=== PATIENT | female | born 1960 | race Caucasian/White ===

== ENCOUNTER 2020-04-06 12:54 | Outpatient (CLI) | payer OTHER, SELFPAY ==
--- NOTE | ~2020-04-06 | CT_ITS ---
EXAMINATION:CT lung screening DATE: 04/06/2020 13:19 INDICATION: Personal history of tobacco dependence. Current smoker with 30 pack year history. TECHNIQUE: Computed tomography (CT) of the chest was performed without intravenous contrast. Automate d exposure control and iterative reconstruction technique were employed. The dose-length product (DLP ) was 364.07 mGy-cm. COMPARISON: Chest CT 01/28/2018 FINDINGS: There is mild emphysema. There is mosaic attenuation the lungs, likely small airways diseas e. Calcified right lung nodules and calcified right hilar and mediastinal lymph nodes are consistent with old granulomatous disease. There are a few scattered nodules in the lungs measuring up to 5 mm, stable from 01/28/2018. No pleural effusion. The heart size is normal. There are coronary artery calci fications. No pericardial effusion. There is moderate thoracic spondylosis. There is mild chronic hei ght loss of multiple vertebral bodies. There are changes of anterior fusion procedure in cervical spi ne. IMPRESSION: 1. Lung-RADS category 2: Benign appearance or behavior. Continue annual screening with noncontrast lo w-dose chest CT in 12 months. Reviewed, dictated and finalized at location B. T OPERATOR CONTROL ROOM OPERATOR IMPRESSION: 1. Lung-RADS category 2: Benign appearance or behavior. Continue annual screeni ng with noncontrast low-dose chest CT in 12 months.
== END 2020-04-06 12:55 | disposition home or self-care (01) ==
PROVIDERS: Visit Provider Emergency Medicine
DX: Z12.2 Encounter for screening for malignant neoplasm of respiratory organs (principal); Z87.891 Personal history of nicotine dependence
CPT/HCPCS: G0297

== ENCOUNTER 2021-05-22 11:21 | Emergency (ER) | payer OTHER, SELFPAY ==
--- NOTE | ~2021-05-22 | CT_ITS ---
EXAMINATION: CT abdomen pelvis w con EXAM DATE: 05/22/2021 13:24 INDICATION: LLQ pain . TECHNIQUE: Spiral CT of the abdomen and pelvis was performed following intravenous injection of 100 m L Omnipaque 350. Axial, coronal and sagittal images of the abdomen and pelvis were reviewed. The do se-length product (DLP) for this examination was 1505.98 mGy-cm. The exposure was tailored according to patient size (auto mA exposure control), and iterative reconstruction (ASIR) was used as addition al dose reduction technique. There is no prior study for comparison. FINDINGS: There is hepatic steatosis without suspicious focal lesion identified. Spleen, adrenal glan ds, pancreas are unremarkable. There are cholecystectomy clips. Portal and splenic veins are patent . Kidneys enhance symmetrically. There is no hydronephrosis. The uterus is not identified and has likely been surgically resected. The bladder is unremarkable. There is no retroperitoneal or pelvi c lymphadenopathy. There is moderate scattered arteriosclerotic disease. Mild scattered colonic diverticulosis. Possible small amount of acute uncomplicated diverticulitis at the splenic flexure of the colon. The appendix is normal. The stomach and small bowel are unremarka ble. There is expected amount of colonic stool. No free intraperitoneal gas. The heart is normal in size. There are no pericardial or pleural effusions. The lung bases are unremarkable. Moderate to severe lumbar spondylosis. IMPRESSION: 1. Equivocal mild acute uncomplicated colonic splenic flexure diverticulitis. 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
[2021-05-22 11:25] VITALS: BP 188/97; RESP 86; TEMP 36.1; O2SAT 99
[2021-05-22 12:56] LABS: Basophils Absolute Auto 0.1 K/mm3 (0.0-0.1); Basophils Percent Auto 0.6 % (0.2-1.2); Eosinophils Absolute Auto 0.2 K/mm3 (0-0.3); Eosinophils Percent Auto 1.5 % (0-4.4); Hematocrit 42.8 % (37.0-47.0); Hemoglobin 14.9 g/dL (12.0-15.0); Immature Granulocyte Absolute 0.05 K/mm3 (0.00-0.031); Immature Granulocyte Percent A 0.5 % (0-0.5); Lymphocytes Absolute Auto 2.77 K/mm3 (0.9-3.2); Lymphocytes Percent Auto 26.7 % (18.3-44.2); Mean Corpuscular HGB Conc 34.8 g/dl (32-36); Mean Corpuscular Hemoglobin 30.9 pg (26-34); Mean Corpuscular Volume 88.8 fl (80-100); Monocytes Absolute Auto 0.6 K/mm3 (0.1-0.6); Monocytes Percent Auto 5.5 % (2.6-8.5); Neutrophils Absolute Auto 6.8 K/mm3 (1.3-6.7); Neutrophils Percent Auto 65.2 % (45.5-73.1); Platelet Count Result 250 k/mm3 (150-375); Red Blood Count 4.82 M/mm3 (4.2-5.4); Red Cell Distribution Width 13.2 % (11.5-14.5); White Blood Count 10.4 K/mm3 (4.5-10.0)
[2021-05-22 12:58] LABS: Add Urine Microscopic? NO; Appearance Urine Clear (Clear); Bilirubin Urine Negative (Negative); Blood Urine Negative (Negative); Color Urine Yellow (Yellow); Glucose Urine UA Negative (Negative); Ketones Urine Negative (Negative); Leukocyte Esterase Ur Negative LEU/UL (Negative); Nitrate Urine Negative (Negative); Protein Urine Negative (Negative); Specific Grav Ur 1.008 (1.001-1.035); Urobilinogen Urine Negative mg/dL (<2.0)
[2021-05-22 13:05] LABS: Alanine Aminotransferase 21 U/L (4-35); Albumin Level 4.6 g/dL (3.5-5.1); Alkaline Phosphatase 95 U/L (38-126); Anion Gap 10 mmol/L (8-16); Aspartate Amino Transferase 28 U/L (14-36); Bilirubin,Total 0.5 mg/dL (0.2-1.3); Blood Urea Nitrogen 5 mg/dL (7-17); Calcium 9.5 mg/dL (8.4-10.2); Carbon Dioxide 29 mmol/L (22-30); Chloride 98 mmol/L (98-107); Estimated CRCL calculation 116 ml/min; Estimated Glomerular Filt Rate > 60; Glucose 209 mg/dL (65-110); Lipase 342 U/L (23-300); Sodium 137 mmol/L (137-145)
--- NOTE | 2021-05-22 13:38 | ED.ABDPAIN ---
HPI - Abdominal Pain General Chief Complaint: Abdominal Pain Stated Complaint: left sided abdominal pain Time Seen by Provider: 05/22/21 12:55 Source: patient and RN notes reviewed Limitations: no limitations History of Present Illness HPI narrative: 61-year-old female with history of hysterectomy and cholecystectomy presented to the emergency department for evaluation of left lower quadrant pain. Patient states she began developing some left lower quadrant pain on Friday. Patient states the pain did improve over the course of the weekend. Patient states pain did return on Friday and has continued to worsen throughout the day today. Patient did present to her primary care physician for evaluation and she was referred to the emergency department for further work-up. Patient has no prior history of pancreatitis. Patient has no history of diverticulitis. Patient does admit that she has not been taking her medications as directed because I do not like taking medications . Related Data Allergies Allergy/AdvReac Type Severity Reaction Status Date / Time Penicillins Allergy Intermediate Hives Verified 05/22/21 11:45 Review of Systems Review of Systems: CONSTITUTIONAL: Denies fever, chills, or sweats. EYES: Denies visual changes, redness, or discharge. ENT: Denies rhinorrhea, congestion, sore throat, or otalgia. CARDIOVASCULAR: Denies chest pain, palpitations, or edema. RESPIRATORY: Denies cough or dyspnea. GASTROINTESTINAL: Left lower quadrant abdominal pain, some diarrhea yesterday, denies blood in her stool GENITOURINARY: Denies dysuria or hematuria. SKIN: Denies rash or itching. MUSCULOSKELETAL: Denies back pain, joint pain, or myalgia. NEUROLOGIC: Denies headache, numbness, or weakness. PSYCHIATRIC: Denies anxiety or depression. Exam Narrative: APPEARANCE: Well appearing, no pain, no distress, well-nourished. HEAD: normocephalic, atraumatic. EYES: PERRLA/EOMI, conjunctivae clear. NOSE: Normal no drainage NECK: Supple. No adenopathy, no masses. RESPIRATORY: Airway patent, respirations nonlabored. Clear to auscultation bilaterally, no rales, rhonchi, wheezing. CARDIOVASCULAR: Regular rate and rhythm without murmurs rubs or gallops. ABDOMINAL: Soft, normal bowel sounds, some left-sided tenderness to palpation on exam MUSCULOSKELETAL: Moves all extremities. Strength/ROM intact NEURO: Alert. Cranial nerves II through XII intact. SKIN: Warm, dry. Normal Color PSYCHIATRIC: Normal affect/mood. Course Course Emergency Course: Patient declined any medications for pain control at this time. Patient was updated on the plan for labs and imaging. Reevaluation(s) Reevaluation #1: CT scan did show evidence of diverticulitis. Patient was started on Cipro and Flagyl p.o. in the emergency department. Patient will be discharged on Cipro and Flagyl. Patient does have an underlying penicillin allergy so Augmentin was not chosen. Patient was encouraged to have close follow-up with her primary care physician. Patient was encouraged to restart taking her medications as directed. Patient was also provided additional permission to have follow-up for GI. All questions and concerns were addressed. Patient was in no distress at time of discharge from emergency room. Vital Signs Vital signs: Vital Signs Temperature 96.9 F L 05/22/21 11:25 Respiratory Rate 86 H 05/22/21 11:25 Blood Pressure 188/97 H 05/22/21 11:25 Pulse Oximetry 99 05/22/21 11:25 Temperature 96.9 F L 05/22/21 11:25 Pulse Rate 81 05/22/21 14:25 Respiratory Rate 18 05/22/21 14:25 Blood Pressure 152/88 H 05/22/21 14:25 Pulse Oximetry 97 05/22/21 14:25 MDM - Abdominal Pain Lab Data Attestation: I reviewed the patient's lab results. Result diagrams: 05/22/21 12:47 05/22/21 12:47 Labs: Lab Results 05/22/21 05/22/21 05/22/21 Range/Units 12:47 12:47 12:47 WBC 10.4 H (4.5-10.0) K/mm3 RBC 4.82 (4.2-5.4) M/
[2021-05-22] MEDS: metroNIDAZOLE 250 MG TABLET 500 MG PO (14:15)
[2021-05-22] MEDS: CIPROFLOXACIN 500 MG TAB PO (14:15)
[2021-05-22 14:25] VITALS: BP 152/88; PULSE 81; RESP 18; O2SAT 97
== END 2021-05-22 14:32 | disposition home or self-care (01) ==
PROVIDERS: Emergency Medicine; Emergency Provider Emergency Medicine
DX: K57.32 Diverticulitis of large intestine without perforation or abscess without bleeding (principal)
CPT/HCPCS: 36415; 74177; 80053; 81003; 81025; 83690; 85025; 99284; A9270; Q9967

== ENCOUNTER 2021-07-20 10:21 | Emergency (ER) | payer OTHER, SELFPAY ==
--- NOTE | ~2021-07-20 | CT_ITS ---
EXAMINATION: CT abdomen pelvis w con DATE: 07/20/2021 11:28 INDICATION: Left abdominal pain, nausea. Fever. History of diverticulitis. TECHNIQUE: Computed tomography (CT) of the abdomen and pelvis was performed with 100 CC Omnipaque 350 intravenous contrast. Automated exposure control and iterative reconstruction technique were employe d. Exam dose: 1442.27 mGy-cm total exam DLP. COMPARISON: 05/22/2021 CT abdomen pelvis FINDINGS: Minimal atelectasis in the lung bases. Normal heart size. No pericardial or pleural effusio n. Status post cholecystectomy. No hepatic, splenic, pancreatic, adrenal or renal space-occupying mass l esion, with the exception of several millimeter lower pole right renal cyst, 1.5 cm upper pole left r enal cyst. Spleen is upper limits of normal size. No bile duct or pancreatic duct dilatation. No urinary tract calculus or hydroureteronephrosis. Status post hysterectomy. The urinary bladder is unremarkable. No bowel obstruction or intraperitoneal free air. Normal appendix. Moderately severe degenerative disc disease L3-4 and severe degenerative disc disease at L4-5 and L5- S1. Degenerative changes throughout the remainder of the lumbar and lower thoracic spine. IMPRESSION: Borderline splenic size Small renal cysts Status post cholecystectomy Normal appendix Reviewed, dictated and finalized at Location A. Reviewed, dictated and finalized at location A.
[2021-07-20 10:31] VITALS: BP 101/86; PULSE 96; RESP 18; TEMP 37.1; O2SAT 96
[2021-07-20 10:51] LABS: Basophils Absolute Auto 0.1 K/mm3 (0.0-0.1); Basophils Percent Auto 0.5 % (0.2-1.2); Eosinophils Absolute Auto 0.9 K/mm3 (0-0.3); Eosinophils Percent Auto 8.2 % (0-4.4); Hematocrit 43.2 % (37.0-47.0); Hemoglobin 14.9 g/dL (12.0-15.0); Immature Granulocyte Absolute 0.05 K/mm3 (0.00-0.031); Immature Granulocyte Percent A 0.5 % (0-0.5); Lymphocytes Absolute Auto 2.32 K/mm3 (0.9-3.2); Lymphocytes Percent Auto 21.1 % (18.3-44.2); Mean Corpuscular HGB Conc 34.5 g/dl (32-36); Mean Corpuscular Hemoglobin 30.9 pg (26-34); Mean Corpuscular Volume 89.6 fl (80-100); Mean Platelet Volume 9.4 fl (7.4-10.4); Monocytes Absolute Auto 0.8 K/mm3 (0.1-0.6); Monocytes Percent Auto 6.9 % (2.6-8.5); Neutrophils Absolute Auto 6.9 K/mm3 (1.3-6.7); Neutrophils Percent Auto 62.8 % (45.5-73.1); Platelet Count Result 292 k/mm3 (150-375); Red Blood Count 4.82 M/mm3 (4.2-5.4); Red Cell Distribution Width 13.5 % (11.5-14.5)
[2021-07-20 10:53] LABS: Add Urine Microscopic? NO; Appearance Urine Clear (Clear); Bilirubin Urine Negative (Negative); Blood Urine Negative (Negative); Color Urine Yellow (Yellow); Glucose Urine UA Negative (Negative); Ketones Urine Negative (Negative); Leukocyte Esterase Ur Negative LEU/UL (Negative); Nitrate Urine Negative (Negative); Protein Urine Negative (Negative); Urobilinogen Urine Negative mg/dL (<2.0)
--- NOTE | 2021-07-20 10:53 | ED.ABDPAIN ---
HPI - Abdominal Pain General Chief Complaint: Abdominal Pain Stated Complaint: left abd pain Time Seen by Provider: 07/20/21 10:29 Source: patient Mode of arrival: ambulatory Limitations: no limitations History of Present Illness HPI narrative: 61-year-old female presents today with complaints of fever since Friday and left-sided abdominal pain. Patient states on Friday she was diagnosed with a UTI, put on antibiotics, does not feel any better. Patient also with a history of diverticulitis in April. Last bowel movement this morning was normal for her. Denies diarrhea but does endorse some nausea this morning. Patient is diabetic has been drinking cranberry juice for her UTI symptoms. Patient states she called her physician this morning to get her antibiotics changed and was sent here. Related Data Allergies Allergy/AdvReac Type Severity Reaction Status Date / Time Penicillins Allergy Intermediate Hives Verified 05/22/21 11:45 Review of Systems Review of Systems: CONSTITUTIONAL: Denies fever, chills, or sweats. EYES: Denies visual changes, redness, or discharge. ENT: Denies rhinorrhea, congestion, sore throat, or otalgia. CARDIOVASCULAR: Denies chest pain, palpitations, or edema. RESPIRATORY: Denies cough or dyspnea. GASTROINTESTINAL: Left sided abdominal pain and intermittent nausea. Denies vomiting, or diarrhea. GENITOURINARY: Denies dysuria or hematuria. SKIN: Denies rash or itching. MUSCULOSKELETAL: Denies back pain, joint pain, or myalgia. NEUROLOGIC: Denies headache, numbness, dizziness, or weakness. PSYCHIATRIC: Denies anxiety or depression. Exam Narrative: GENERAL: Well-appearing, well-nourished, and in no acute distress. HEAD: Normocephalic, atraumatic. EYES: PERRLA and EOMI. ENT: Nares clear, no rhinorrhea or epistaxis. Mucous membranes moist. Oropharynx without tonsillar hypertrophy exudate or other lesions. Bilateral TMs pearly henriquez nonbulging NECK: Supple. No adenopathy or masses. No carotid bruits or JVD CHEST: Clear to auscultation. No respiratory distress. No wheezes rales or rhonchi HEART: Regular rate and rhythm. No murmur heard. Normal peripheral pulses. ABDOMEN: Generalized abdominal tenderness. Soft nondistended, normal active bowel sounds. EXTREMITIES: Normal range of motion. No edema. SKIN: Warm, dry, no rash. NEURO: No focal deficits. Alert and oriented x3. PSYCH: Normal mood and affect. Course Course Emergency Course: Labs and CT scan reviewed with patient. Patient aware to continue p.o. antibiotics previously prescribed. Patient aware urine today shows no signs of infection. CT shows no signs of pyelonephritis or diverticulitis. Patient to treat fever with Tylenol or ibuprofen and return with any new or emergent symptoms. Vital Signs Vital signs: Vital Signs Temperature 37.1 C 07/20/21 10:31 Pulse Rate 96 07/20/21 10:31 Respiratory Rate 18 07/20/21 10:31 Blood Pressure 101/86 07/20/21 10:31 Pulse Oximetry 96 07/20/21 10:31 Temperature 37.1 C 07/20/21 10:31 Pulse Rate 78 07/20/21 11:10 Respiratory Rate 18 07/20/21 11:10 Blood Pressure 124/74 07/20/21 11:10 Pulse Oximetry 94 07/20/21 11:10 MDM - Abdominal Pain MDM Narrative Medical decision making narrative: 61-year-old female HPI as documented. Currently afebrile. States she has had fever off and on since Friday. Treatment currently for UTI. CT of the abdomen negative for diverticulitis and no pyelonephritis seen. Patient to go home continue antibiotic regimen that was previously prescribed and medicate with Tylenol/ibuprofen for pain or fever. Patient to follow-up with primary or return for any new or worsening symptoms. Differential Diagnosis Differential diagnosis: Likely abdominal pain, diverticulitis and other (UTI, pyelonephritis) Medical Records Attestation: I reviewed the patient's medical records. Lab Data Attestation: I reviewed the patient's lab results. Result diagrams: 07/20
[2021-07-20 10:55] LABS: Specific Grav Ur 1.003 (1.001-1.035)
[2021-07-20 11:03] LABS: Alanine Aminotransferase 19 U/L (4-35); Albumin Level 4.5 g/dL (3.5-5.1); Alkaline Phosphatase 91 U/L (38-126); Anion Gap 8 mmol/L (8-16); Aspartate Amino Transferase 31 U/L (14-36); Bilirubin,Total 0.5 mg/dL (0.2-1.3); Blood Urea Nitrogen 5 mg/dL (7-17); Calcium 9.2 mg/dL (8.4-10.2); Carbon Dioxide 27 mmol/L (22-30); Chloride 103 mmol/L (98-107); Estimated CRCL calculation 128 ml/min; Estimated Glomerular Filt Rate > 60; Glucose 116 mg/dL (65-110); Lipase 442 U/L (23-300); Potassium 3.7 mmol/L (3.4-5.0); Sodium 138 mmol/L (137-145)
[2021-07-20 11:10] VITALS: BP 124/74; PULSE 78; RESP 18; O2SAT 94
--- NOTE | 2021-07-20 11:30 | PC.NURSE ---
BSSR to Letha Galicia RN
[2021-07-20] MEDS: SODIUM CHLORIDE 0.9% IV 1,000 ML 999 ML IV CONT (12:13)
== END 2021-07-20 13:15 | disposition home or self-care (01) ==
PROVIDERS: Emergency Medicine; Emergency Provider Nurse Practitioner Family; PCP Emergency Medicine
DX: B34.9 Viral infection, unspecified (principal); R10.84 Generalized abdominal pain; N39.0 Urinary tract infection, site not specified; E11.9 Type 2 diabetes mellitus without complications; N28.1 Cyst of kidney, acquired
CPT/HCPCS: 36415; 74177; 80053; 81003; 83690; 85025; 96360; 99284; J7030; Q9967

== ENCOUNTER → 2021-07-23 10:27 | Outpatient (CLI) | payer OTHER, SELFPAY ==
--- NOTE | ~2021-07-23 | XR_ITS ---
EXAMINATION: XR chest 2V EXAM DATE: 07/23/2021 10:49 INDICATION: Chest pain short of breath. TECHNIQUE: Frontal and lateral projections of the chest obtained and reviewed. There is no prior ronak dy for comparison. FINDINGS: There is cervical fusion hardware. The lungs are clear. There are no pleural effusions. T he cardiomediastinal silhouette is within normal limits. There is no pneumothorax suspected. The roman anita and soft tissues are unremarkable. There are cholecystectomy clips. IMPRESSION: No acute cardiopulmonary findings. Reviewed, dictated and finalized at location B.
== END ==
PROVIDERS: PCP Emergency Medicine; Visit Provider Emergency Medicine
DX: R07.9 Chest pain, unspecified (principal); R06.02 Shortness of breath
CPT/HCPCS: 71046

== ENCOUNTER → 2021-07-24 01:46 | Outpatient (CLI) | payer OTHER, SELFPAY ==
[2021-07-24 11:29] LABS: SARS-CoV-2 RNA PCR Negative
== END ==
PROVIDERS: PCP Emergency Medicine; Visit Provider Emergency Medicine
DX: R68.89 Other general symptoms and signs (principal); Z20.822 Contact with and (suspected) exposure to COVID-19
CPT/HCPCS: C9803; U0003; U0005

== ENCOUNTER 2021-12-01 10:50 | Outpatient (CLI) | payer OTHER, SELFPAY ==
--- NOTE | ~2021-12-01 | CT_ITS ---
EXAMINATION: CT lung screening DATE: 12/01/2021 11:56 INDICATION: History of tobacco dependence. TECHNIQUE: Computed tomography (CT) of the chest was performed without intravenous contrast. The dose -length product was 347.43 mGy-cm. Automated exposure control and iterative reconstruction technique were employed. COMPARISON: CT dated 04/06/2020 and 01/28/2018 FINDINGS: There are calcified mediastinal lymph nodes, consistent with chronic granulomatous disease. No significant pleural or pericardial effusion. There is atherosclerosis of the aorta and coronary a rteries. There is emphysema. There are stable scattered bilateral pulmonary nodules measuring 5 mm or less. Moderate thoracic spondylosis. No acute osseous abnormality. No endobronchial lesions. No pneu mothorax. There is dependent atelectasis. There is a small nonenlarged right cardiophrenic angle lymp h node. There are cholecystectomy clips. There are calcified granulomas of the spleen. IMPRESSION: 1. Lung-RADS category 2: Benign appearance or behavior. Continue annual screening with noncontrast lo w-dose chest CT in 12 months. Reviewed, dictated and finalized at location A. IMPRESSION: 1. Lung-RADS category 2: Benign appearance or behavior. Continue annual screeni ng with noncontrast low-dose chest CT in 12 months.
== END 2021-12-01 10:51 | disposition home or self-care (01) ==
PROVIDERS: PCP Emergency Medicine; Visit Provider Emergency Medicine
DX: Z12.2 Encounter for screening for malignant neoplasm of respiratory organs (principal); Z87.891 Personal history of nicotine dependence
CPT/HCPCS: 71271

== ENCOUNTER 2022-02-09 10:27 | Outpatient (CLI) | payer OTHER, SELFPAY ==
--- NOTE | ~2022-02-09 | MM_ITS ---
EXAMINATION: MM screening [facility] BI w lashonda HISTORY: Screening TECHNIQUE: Craniocaudal and mediolateral oblique 3-D tomosynthesis images were obtained and synthetic 2-D images were generated. CAD analysis was submitted and interpreted. COMPARISON: Comparison to multiple prior studies sequentially, with oldest reviewed study dated 01/27. BREAST PARENCHYMAL COMPOSITION: There are scattered areas of fibroglandular density. FINDINGS: There is no evidence of suspicious mass, calcification, or architectural distortion to sugg est malignancy in either breast. There has been no suspicious interval change. IMPRESSION: 1. No mammographic evidence of malignancy. 2. Recommend routine screening mammography in one year. BI-RADS Category 1: Negative Reviewed, dictated and finalized at location A.
== END 2022-02-09 10:28 | disposition home or self-care (01) ==
PROVIDERS: PCP Emergency Medicine; Visit Provider Emergency Medicine
DX: Z12.31 Encounter for screening mammogram for malignant neoplasm of breast (principal)
CPT/HCPCS: 77063; 77067

== ENCOUNTER 2022-04-23 11:50 | Outpatient (CLI) | payer OTHER, SELFPAY ==
[2022-04-23 12:18] LABS: Basophils Absolute Auto 0.1 K/mm3 (0.0-0.1); Basophils Percent Auto 0.5 % (0.2-1.2); Eosinophils Absolute Auto 0.2 K/mm3 (0-0.3); Eosinophils Percent Auto 1.4 % (0-4.4); Hematocrit 36.9 % (37.0-47.0); Hemoglobin 12.7 g/dL (12.0-15.0); Immature Granulocyte Absolute 0.05 K/mm3 (0.00-0.031); Immature Granulocyte Percent A 0.4 % (0-0.5); Lymphocytes Absolute Auto 2.43 K/mm3 (0.9-3.2); Lymphocytes Percent Auto 19.5 % (18.3-44.2); Mean Corpuscular HGB Conc 34.4 g/dl (32-36); Mean Corpuscular Hemoglobin 31.1 pg (26-34); Mean Corpuscular Volume 90.4 fl (80-100); Mean Platelet Volume 10.3 fl (7.4-10.4); Monocytes Absolute Auto 0.7 K/mm3 (0.1-0.6); Monocytes Percent Auto 5.9 % (2.6-8.5); Neutrophils Percent Auto 72.3 % (45.5-73.1); Platelet Count Result 240 k/mm3 (150-375); Red Blood Count 4.08 M/mm3 (4.2-5.4); Red Cell Distribution Width 13.1 % (11.5-14.5); White Blood Count 12.5 K/mm3 (4.5-10.0)
[2022-04-23 13:12] LABS: Alanine Aminotransferase 22 U/L (6-35); Albumin Level 4.3 g/dL (3.5-5.1); Alkaline Phosphatase 73 U/L (38-126); Anion Gap 6 mmol/L (8-16); Aspartate Amino Transferase 29 U/L (14-36); Bilirubin,Total 0.4 mg/dL (0.2-1.3); Blood Urea Nitrogen 9 mg/dL (7-17); Calcium 8.6 mg/dL (8.4-10.2); Carbon Dioxide 27 mmol/L (22-30); Chloride 101 mmol/L (98-107); Estimated Glomerular Filt Rate > 60; Glucose 156 mg/dL (65-110); Potassium 3.8 mmol/L (3.4-5.0); Sodium 134 mmol/L (137-145)
== END 2022-04-23 11:51 | disposition home or self-care (01) ==
LOC: ANHLAB 11:51
PROVIDERS: PCP Emergency Medicine; Visit Provider Internal Medicine Hematology & Oncology
DX: D72.829 Elevated white blood cell count, unspecified (principal)
CPT/HCPCS: 36415; 80053; 85025

== ENCOUNTER 2023-01-16 14:30 | Emergency (ER) | payer OTHER, SELFPAY ==
--- NOTE | ~2023-01-16 | XR_ITS ---
XR ankle RT min 3V DATE: 01/16/2023 14:59 INDICATION: Fall on 01/04/2023. Medial and lateral ankle pain. TECHNIQUE: 4 views including crosstable lateral COMPARISON: None FINDINGS: Prominent plantar and mild posterior calcaneal enthesopathy. There is generalized soft tissue swelling of the ankle. No fracture or dislocation of the ankle or disruption of the ankle mortise is detected. No periosteal reaction or bone destruction. IMPRESSION: Generalized soft tissue swelling; no fracture or dislocation Plantar and posterior calcaneal enthesopathy Reviewed, dictated and finalized at location A.
--- NOTE | ~2023-01-16 | XR_ITS ---
XR tibia fibula RT 2V DATE: 01/16/2023 15:00 INDICATION: Lower leg pain. Fall on 01/04/2023 TECHNIQUE: AP and lateral views COMPARISON: 01/16/2023 right knee and right ankle FINDINGS: Prominent plantar and mild posterior calcaneal enthesopathy. Osteoarthritis at the knee joint. No fracture or dislocation, periosteal reaction or bone destruction of the tibia or fibula is detecte d. Generalized soft tissue swelling at the ankle. IMPRESSION: No fracture or dislocation of the tibia or fibula Reviewed, dictated and finalized at location A.
--- NOTE | ~2023-01-16 | XR_ITS ---
XR knee RT 3V DATE: 01/16/2023 14:59 INDICATION: Anterior knee pain. Abrasion. TECHNIQUE: [place], AP and crosstable lateral views of right knee COMPARISON: None FINDINGS: There is prominent joint space narrowing and periarticular spurring of the patellofemoral j oint. There is mild periarticular spurring at the medial compartment. No fracture or dislocation or joint effusion is detected. IMPRESSION: Osteoarthritis, with greatest involvement at the patellofemoral compartment Reviewed, dictated and finalized at location A. IMPRESSION: Osteoarthritis, with greatest involvement at the patellofemoral com partment
[2023-01-16 14:36] VITALS: BP 134/74; PULSE 88; RESP 18; TEMP 36.8; O2SAT 97
[2023-01-16 17:17] VITALS: BP 125/61; PULSE 76; RESP 18; TEMP 36.7; O2SAT 100
--- NOTE | 2023-01-16 18:28 | ED.LOWEXIN ---
HPI - Extremity Injury (Lower) General Chief Complaint: Extremity Injury, Lower Stated Complaint: right leg injury Time Seen by Provider: 01/16/23 17:27 History of Present Illness HPI Narrative: Patient is a 62-year-old female presenting with foot swelling. Patient states that she fell several weeks ago landing on her right side. She was seen at that time and diagnosed with a right shoulder injury. States she is supposed to follow-up with orthopedic surgery soon for this. States that she has had bilateral foot swelling for the last several days. States that she had a little bit of pain on her right upper foot near the ankle so she was concerned that she may have broken something. States that no one ever obtained x-rays of this leg after her fall. She denies any calf pain or swelling. Denies erythema. No chest pain or shortness of breath. Denies further complaints. Related Data Allergies Allergy/AdvReac Type Severity Reaction Status Date / Time Penicillins Allergy Intermediate Hives Verified 12/04/21 08:44 Review of Systems Review of Systems: All systems reviewed & are unremarkable except as noted in HPI and below Exam Narrative: GENERAL: Well-appearing and in no acute distress. Pleasant and cooperative HEAD: Normocephalic, atraumatic. EYES: PERRLA and EOMI. ENT: Grossly unremarkable NECK: Supple. CHEST: No respiratory distress. HEART: Regular rate and rhythm. Normal peripheral pulses. ABDOMEN: Nondistended EXTREMITIES: bilateral pitting pedal edema that stops just below the ankles, mild lateral malleolar tenderness on right; DP pulses 2+ bilaterally SKIN: Warm, dry NEURO: Alert and oriented x3. PSYCH: Normal mood and affect. Course Vital Signs Vital signs: Vital Signs Temperature 98.2 F 01/16/23 14:36 Pulse Rate 88 01/16/23 14:36 Respiratory Rate 18 01/16/23 14:36 Blood Pressure 134/74 01/16/23 14:36 Pulse Oximetry 97 01/16/23 14:36 Oxygen Delivery Room Air 01/16/23 14:36 Temperature 98.1 F 01/16/23 17:17 Pulse Rate 76 01/16/23 17:17 Respiratory Rate 18 01/16/23 17:17 Blood Pressure 125/61 01/16/23 17:17 Pulse Oximetry 100 01/16/23 17:17 Oxygen Delivery Room Air 01/16/23 14:36 MDM - Extremity Injury (Lower) MDM Narrative Medical decision making narrative: Patient is a 62-year-old female presenting with bilateral foot swelling. Vitals are stable. Exam remarkable for the above. X-rays show no acute osseous abnormalities. She denies unilateral swelling, pain, erythema. No chest pain or shortness of breath. No evidence of DVT. States that both of her feet have been swelling and she cannot put them up as much is normal as she has been having to sleep in her recliner. Discussed the reassuring x-rays with the patient and advised that she keep her appointment with orthopedic surgery and also follow-up with her PCP. Appropriate return precautions given. Voiced understanding and is agreeable with plan. Discharged in stable condition. Differential Diagnosis Differential diagnosis: Likely ankle sprain and strain, acute internal derangement of knee, fracture of toe and ankle fracture Medical Records Attestation: I reviewed the patient's medical records. Imaging Data Radiologist's impression: ITS Impressions Knee X-Ray 01/16/23 15:14 IMPRESSION: Osteoarthritis, with greatest involvement at the patellofemoral compartment Ankle X-Ray 01/16/23 15:16 IMPRESSION: Generalized soft tissue swelling; no fracture or dislocation Plantar and posterior calcaneal enthesopathy Tibia/Fibula X-Ray 01/16/23 15:17 IMPRESSION: No fracture or dislocation of the tibia or fibula Critical Care Time Critical Care Time Critical Care Time: No Discharge Plan Discharge Clinical Impression: Bilateral swelling of feet Patient Disposition: Home, Self-Care Condition: Stable Instructions: Leg Edema (ED) Additional Instructions: X-rays to
== END 2023-01-16 18:45 | disposition home or self-care (01) ==
PROVIDERS: Emergency Provider Emergency Medicine; PCP Emergency Medicine
DX: R22.43 Localized swelling, mass and lump, lower limb, bilateral (principal); M17.11 Unilateral primary osteoarthritis, right knee; M77.51 Other enthesopathy of right foot and ankle; M77.31 Calcaneal spur, right foot
CPT/HCPCS: 73562; 73590; 73610; 99284

== ENCOUNTER → 2024-07-29 10:28 | Outpatient (CLI) | payer OTHER, SELFPAY ==
--- NOTE | ~2024-07-29 | XR_ITS ---
AP view of the pelvis and AP and lateral views of the right hip Clinical history: Pain Findings: No acute fracture or dislocation is seen. Osseous alignment is anatomic. There is mild dege nerative change of the right hip joint. There is degenerative spondylosis of the visualized lower lum bar spine. Soft tissues are unremarkable. Impression: Mild degenerative change of the right hip joint. Reviewed, dictated and finalized at location M. Impression: Mild degenerative change of the right hip joint.
== END ==
LOC: EXPCRAD 10:31
PROVIDERS: PCP Emergency Medicine; Visit Provider Emergency Medicine
DX: M16.11 Unilateral primary osteoarthritis, right hip (principal)
CPT/HCPCS: 73502

== ENCOUNTER 2024-12-31 13:43 | Outpatient (CLI) | payer OTHER, SELFPAY ==
--- NOTE | 2024-12-31 14:06 | ECHO_ITS ---
Patient Info Name: Gen River Age: 64 years : 1960 Gender: Female Ht: 67 in Wt: 280 lbs BSA: 2.52 m2 HR: 80 bpm BP: 163 / 93 mmHg Technical Quality: Fair Exam Date: 12/31/2024 2:19 PM Patient Status: O Admit Date: 12/31/2024 Exam Type: CA echo doppler color flow Complete two-dimensional, color flow and Doppler transthoracic echocardiogram is performed. Buildings And Grounds Supervisor: Soraida Morel Attending Provider: Max Liriano DO Summary 1. Complete two-dimensional, color flow and Doppler transthoracic echocardiogram is performed. 2. Left ventricular chamber dimension is normal. 3. Left ventricular systolic function is normal, estimated at 65-70. 4. The left ventricular diastolic function is grade I diastolic dysfunction. 5. E/e' 13 is mildly elevated. 6. The mitral valve has a mildly calcified annulus. 7. No pulmonary hypertension, estimated pulmonary arterial systolic pressure is 21 mmHg. Left Ventricle E/e' 13 is mildly elevated. Left ventricular chamber dimension is normal. Left ventricular systolic function is normal, estimated at 65-70. The left ventricular diastolic function is grade I diastolic dysfunction. Right Ventricle Right ventricular chamber dimension is normal. Right ventricular systolic function is normal and with normal TAPSE 1.8 cm. Left Atria Left atrial chamber dimension is normal. Right Atria Right atrial chamber dimension is normal. Aortic Valve The aortic valve is not well visualized. Cannot determine number of aortic valve leaflets. There is no aortic valve stenosis. There is no aortic valve regurgitation. Pulmonic Valve There is no pulmonic regurgitation. Mitral Valve The mitral valve has a mildly calcified annulus. There is no mitral valve stenosis. There is no mitral valve regurgitation. Tricuspid Valve There is no tricuspid valve regurgitation. No pulmonary hypertension, estimated pulmonary arterial systolic pressure is 21 mmHg. Pericardium/Pleural There is no pericardial effusion. Inferior Vena Cava Normal inferior vena cava with >50% collapse upon inspiration consistent with normal right atrial pressure, 5 mmHg. Aorta The aortic root size at the sinus of Valsalva is normal. Left Ventricular Outflow Tract Name Value Normal LVOT 2D LVOT Diameter 2.0 cm LVOT Doppler LVOT Peak Velocity 115 cm/s LVOT Peak Gradient 5 mmHg LVOT Mean Gradient 3 mmHg LVOT VTI 25 cm LVOT VTI/AV VTI Ratio 0.7 LVOT Stroke Volume 75 ml LVOT CO 15.1 l/min LVOT CI 6.0 l/min/m2 Pulmonic Valve Name Value Normal PV Doppler PV Peak Velocity 104 cm/s PV Peak Gradient 4 mmHg Mitral Valve Name Value Normal MV Diastolic Function MV E Peak Velocity 112 cm/s MV A Peak Velocity 122 cm/s MV E/A 0.9 MV Decel Time (PW) 279 ms MV Annular TDI MV E/e' (Septal) 13.6 MV E/e' (Lateral) 13.3 MV E/e' (Average) 13.4 Tricuspid Valve Name Value Normal TV Regurgitation Doppler TR Peak Velocity 202 cm/s TR Peak Gradient 16 mmHg Estimated PAP/RSVP RA Pressure 5 mmHg <=5 PA Systolic Pressure 21 mmHg <36 RV Systolic Pressure 21 mmHg <36 TV Annular TDI TV Lateral Martina s' Velocity 12.3 cm/s >=9.5 Aorta Name Value Normal Ascending Aorta Ao Root Diameter (MM) 4.0 cm Ao Root Diam Index (MM) 1.6 cm/m2 Aortic Valve Name Value Normal AV Doppler AV Peak Velocity 158 cm/s AV Peak Gradient 10 mmHg AV Mean Gradient 6 mmHg AV VTI 34 cm AV Area (Cont Eq VTI) 2.2 cm2 >=3.0 AV Area (Cont Eq Cain) 2.2 cm2 AV DI (Cain) 0.73 AV Regurgitation 2D LVOT Area 3.0 cm2 Ventricles Name Value Normal LV Dimensions 2D/MM IVS Diastolic Thickness (2D) 1.4 cm 0.6-1.0 LVID Diastole (2D) 4.9 cm 3.8-5.2 LVIW Diastolic Thickness (2D) 1.3 cm 0.6-0.9 LVID Systole (2D) 3.5 cm 2.2-3.5 LVOT Diameter 2.0 cm LV Mass (2D Cubed) 266.07 g 67.00-162.00 LV Mass Index (2D Cubed) 106 g/m2 43-95 Relative Wall Thickness (2D) 0.52 <=0.42 LV Fractional Shortening/Ejection Fraction 2D/MM LV Fractional Shortening (2D) 29 % 27-45 LV EF (2D Teichholz) 56 % LV Diastolic Volume (4C MOD) 122 ml LV EF (4C MOD) 77 % LV Diastolic Volume (2C MOD) 124 ml LV EF (2C MOD) 71 % LV Diastolic Volume (BP MOD) 124 ml 46-106 LV Diastolic Volume Index (BP MOD) 49 ml/m2 29-61 LV Systolic Volume (BP MOD) 32 ml 14-42 LV Systolic Volume Index (BP MOD) 13 ml/m2 8-24 LV EF (BP MOD) 74 % 54-74 LV Diastolic Length (4C) 8.1 cm LV Systolic Length (4C) 6.1 cm LV Stroke Volume (4C MOD) 94 ml RV Dimensions 2D/MM RVID Diastole (2D) 4.2 cm 2.1-3.5 Atria Name Value Normal LA Dimensions LA Dimension (MM) 3.4 cm 2.7-3.8 LA Volume (4C A-L) 41 ml LA Volume (BP A-L) 54 ml RA Dimensions RA Systolic Major [place] Length (4C) 4.9 cm 2.2-2.8 RA Area (4C) 15.6 cm2 <=18.0 Report Signatures
--- OUTSIDE RECORDS SUMMARY | 2024-12-31 14:08 | XMS_ITS | Clinical Summary ---
Author Organization [facility] Address [address] [place] [address] Care Team Providers Care Stucco Laborer Name Role Phone Escobar Hua MD Primary Care Provider [phone] Source Comments [facility],non-owned Affiliates and Associated Physician Practices is amultiple site organization consisting of ambulatory clinics and hospital sitesin [place], [place], [place] and [place]. This disclosure is being madepursuant to the Care Everywhere program and may not contain all information available regarding this patient. Last updated 18.[facility] Allergies Active Allergy Reactions Criticality Noted Date Comments Penicillins Unknown 01/06/2023 Medications * Be aware that medications may not be up to date on this document. Alwaysverify current medications with the patient. acetaminophen (Tylenol) 500 MG tablet Take 1 (one) tablet by mouth every 4 hours as needed for Fever or Pain Maximum allowable Acetaminophen amount = 4 Grams (4000 mg) / 24 hours. 30 tablet 3 Active lidocaine (Lidoderm) 5 % patchIndicatio ns:Fracture of humeral head, closed, right, initial encounter Apply 1 (one) patch to skin once daily Apply patch to most painful area and remove after 12 hours. May reapply a new patch 12 hours later. 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 Gender Identity Not on file Sexual Orientation Not on file Last Filed Vital Signs Vital Sign Reading Time Taken Comments Blood Pressure 136/88 01/06/2023 6:12 PM CDT Pulse 81 01/06/2023 6:12 PM CDT Temperature 36.6 C (97.9 F) 01/06/2023 6:12 PM CDT Respiratory Rate 16 01/06/2023 6:12 PM CDT Oxygen Saturation 92% 01/06/2023 6:12 PM CDT Inhaled Oxygen Concentration - - Weight 123.8 kg (273 lb) 02/04/2023 10:37 AM CDT Height 170.2 cm (5' 7) 01/21/2023 10:58 AM CDT Body Mass Index 42.76 01/21/2023 10:58 AM CDT Plan of Treatment Health Maintenance Due Date Last Done Comments COLOGUARD (AGES 45-75) - COL ON CA SCREENING 1960 COLON MONITORING 1960 COLONOSCOPY - COLON CA SCREENING 1960 CT COLONOGRAPHY - COLON CA SCREENING 1960 Colorectal Cancer Screening 1960 FIT - COLON CA SCREENING 1960 FLEX SIG - COLON CA SCREENING 1960 LIPID TESTING 1960 MAMMOGRAM 1960 HIV SCREENING 1976 HEPATITIS C SCREENING 03/04/1979 DTAP/TDAP/TD VACCINES (1 - Tdap) 1980 PNEUMOCOCCAL VACCINE 50+ (1 of 2 - PCV) 1980 PAP SMEAR 1982 ZOSTER VACCINE (1 of 2) 2011 Respiratory Syncytial Virus (RSV) Vaccine Pt: or over 60 yrs (1 - Risk 60-74 years 1-dose series) 2021 SCREENING FOR DIABETES 01/21/2023 DEPRESSION SCREENING 04/28/2024 COVID-19 VACCINE (1 - 2023-2 5 season) 2024 INFLUENZA VACCINE (#1) 2024 HEPATITIS B VACCINE Aged Out No longe r eligible based on patient's age to complete this topic HIB VACCINE Aged Out No longer eligi ble based on patient's age to complete this topic HPV VACCINE Aged Out No longer eligi ble based on patient's age to complete this topic MENINGOCOCCAL (Group B) VACC INE SHARED DECISION-MAKING Aged Out No longer eligibl e based on patient's age to complete this topic MENINGOCOCCAL GROUPS A/C/Y/W VACCINE Aged Out No longer eligible b ased on patient's age to complete this topic Insurance [facility] [place] [id number] [facility] Care Teams Stucco Laborer Relationship Specialty Start Date End Date Escobar Hua MD [address] [place] [id number] PCP - General Family Medicine 01/03/23
--- OUTSIDE RECORDS SUMMARY | 2024-12-31 14:08 | XMS_ITS | Clinical Summary ---
Author Organization [facility] [address] Address [address] [place] [id number] Care Team Providers Care Toe Former Stitchdowns Name Role Phone Escobar Hua MD Primary Care Provider [phone] Allergies Active Allergy Reactions Criticality Noted Date Comments Penicillins Rash Medium 05/05/2015 Medications ezetimibe (ZETIA) 10 mg tablet Take 1 tablet (10 mg total) by mouth daily 2 Active glipiZIDE XL (GLUCOTROL XL) 10 mg 24 hr tablet 2 Active hydroCHLOROthiaz martin (HYDRODIURIL) 12.5 mg tablet Take 1 tablet (12.5 mg total) by mouth daily as needed 2 Active aspirin 81 mg enteric coated tablet Take 1 tablet (81 mg total) by mouth daily 2 Active ergocalciferol (VITAMIN D) 50,000 unit capsule TAKE 1 CAPSULE BY MOUTH WEEKLY 2 Active rosuvastatin (CRESTOR) 20 mg tablet Take 1 tablet (20 mg total) by mouth daily 2 Active potassium chloride ER 10 mEq CR tablet 2 Active lisinopriL (PRINIVIL,ZESTRI L) 40 mg tablet Take 1 tablet (40 mg total) by mouth daily 2 Active albuterol HFA (PROVENTIL HFA,VENTOLIN HFA,PROAIR HFA) 90 mcg/actuation inhaler Inhale 2 puffs every 6 (six) hours as needed 2 Active metFORMIN (GLUCOPHAGE) 500 mg tablet 3 Active nicotine (NICODERM CQ) 21 mg [address] (PROTONIX) 20 mg EC tablet pantoprazole 20 mg tablet,delayed release 0 Active buPROPion SR (ZYBAN) 150 mg 12 hr tabletIndication s:Cigarette nicotine dependence without complication Take 1 tablet (150 mg total) by mouth 2 (two) times a day 60 tablet 2 3 Active umeclidinium-anders anteroL (Anoro Ellipta) 62.5-25 mcg/actuation blister with deviceIndication s:Chronic obstructive pulmonary disease, unspecified COPD type (HCC) Inhale 1 puff daily 60 each 3 3 Active HYDROcodone-acet aminophen (NORCO) 5-325 mg per tabletIndication s:Pain Take 1 tablet by mouth every 6 (six) hours as needed for pain 8 tablet 3 Active loratadine (CLARITIN) 10 mg tabletIndication s:Chronic rhinitis TAKE 1 TABLET BY MOUTH EVERY DAY 90 tablet 1 3 Active Active Problems No known active problems Immunizations Immunization Administration Dates Next Due Tdap 01/04/2023 Surgical History Surgery Date Site/Laterality Comments CERVICAL FUSION Medical History Medical History Date Comments COPD (chronic obstructive pulmonary disease) Hypertension GERD (gastroesophageal reflux disease) Cancer (HCC) Diabetes mellitus (HCC) Heart attack (HCC) 07/10/2022 Family History Medical History Relation Name Comments Cancer Father Emphysema Father Lung disease Father Asthma Mother Diabetes Mother Heart failure Mother Hypertension Mother Stroke Mother Heart disease Paternal Grandfather Relation Name Status Comments Father Mother Paternal Grandfather Social History Tobacco Use Types Packs/Day Years Used Date Smoking Tobacco: Every Day Cigarettes 1 35 Tobacco Cessation:Ready to Q uit: Not Asked; Counseling Given: Not Answered Comments:Pt rolls her own pipe tobacco Personal Safety Answer Date Recorded Getting School Help Needed Not on file 01/04 Comments No Sex and Gender Information Value Date Recorded Sex Assigned at Not on file Legal 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 Gender Identity Female 02/26/2022 4:37 PM CDT Sexual Orientation Straight 02/26/2022 4: 37 PM CDT Obstetrics History Last Filed Vital Signs Vital Sign Reading Time Taken Comments Blood Pressure 145/79 01/04/2023 3:29 PM CDT Pulse 87 01/04/2023 3:29 PM CDT Temperature 36.3 C (97.3 F) 01/04/2023 3:29 PM CDT Respiratory Rate 20 01/04/2023 3:29 PM CDT Oxygen Saturation 95% 01/04/2023 3:29 PM CDT Inhaled Oxygen Concentration - - Weight 123.8 kg (273 lb) 01/04/2023 3:29 PM CDT Height 170.2 cm (5' 7) 01/04/2023 3:29 PM CDT Body Mass Index 42.76 01/04/2023 3:29 PM CDT Plan of Treatment Health Maintenance Due Date Last Done Comments Breast Cancer Screening-Mammogram 1960 Colon Cancer Screening-Colonoscopy 1960 Depression Screening 1960 Hepatitis C Screening 1961 Hepatitis B Screening 1979 Regular Well Visit/Exam 18-64 1979 Pneumococcal vaccine <65 (1 of 2 - PCV) 1980 Zoster Vaccine (1 of 2) 2011 Lung Cancer Screening 05/31/2023 12/02/2022 Influenza Vaccine (#1) 2024 DTaP/Tdap/Td Vaccine (2 - Td or Tdap) 01/04/203312/2022 Procedures Procedure Name Priority Date/Time Associated Diagnosis Comments CT LUNG CANCER SCREENING Schedule Routine, Read Routine (OP Routine) 12/02/2022 4:25 PM CDT Cigarette nicotine dependence without complication from Last 3 Months or Most Recently Relevant to Health Maintenance Results * CT Lung Cancer Screening (12/02/2022 4:25 PM CDT) Anatomical Region Laterality Modality Chest N/A Computed Tomogra phy 12/03/2022 9:19 AM CDT Narrative 12/03/2022 9:31 AM CDT EXAM DESCRIPTION: CT LUNG CANCER SCREENING REASON FOR STUDY: Screening CT of the chest in a current smoker with a 35 pack year smoking history. Additional history: Chronic obstructive pulmonary disease. Asbestos exposure. TECHNIQUE: Low dose CT scan of the chest was performed without intravenous contrast using helical scanning technique. The exam extends from the lung apices through the lung bases. Automatic exposure control was used as a dose optimization technique. NOTE: This study was performed for the specific purposes of lung cancer screening and is not an alternative to diagnostic chest CT. RADIATION DOSE: CT dose index volume (CTDIvol) = 2.25 mGy COMPARISON: Dated 12/01/2021 FINDINGS: SMOKING RELATED LUNG DISEASE: Minimal centrilobular emphysema in the upper lungs. Unchanged subtle centrilobular ground-glass nodules in the upper lungs, suggestive of respiratory bronchiolitis in a smoker. LUNG NODULES: There is a new 5 mm nodule in the left upper lobe on image 41. A new 5 mm nodule is seen in the right upper lobe on image 104. A new 7 mm ground-glass nodule is seen in the left lower lobe on image 143. No other new nodules are definitely seen. A 4 mm nodule is unchanged in the periphery of the right upper lobe on image 57. Other tiny lung nodules are stable. CORONARY ARTERY CALCIFICATION: Severe. OTHER: Minimal areas of peripheral scarring. No focal consolidation. The airways are patent and normal in caliber. No pleural effusion or pneumothorax. No suspicious lymphadenopathy is seen in the chest. No suspicious mediastinal masses. The heart size is normal. No pericardial effusion. The thoracic aorta is mildly atherosclerotic. The ascending aorta is ectatic, but there is no aneurysm. The pulmonary arteries have normal caliber. Limited low-dose images through the upper abdomen are unremarkable. Examination of bone windows demonstrates no suspicious lytic or blastic lesions. There is diffuse idiopathic skeletal hyperostosis of the thoracic spine. Spinal fusion instrumentation partially seen in the lower cervical spine. IMPRESSION: There are new solid nodules in the left upper lobe and in the right upper lobe, each measuring approximally 5 mm. New 7 mm ground-glass nodule in the left lower lobe. Other tiny lung nodules are stable. Minimal centrilobular emphysema in the upper lungs. Unchanged subtle centrilobular ground-glass nodules in the upper lungs, suggestive of respiratory bronchiolitis in a smoker. Severe coronary artery disease. Lung-RADS category 3: Probably benign. Recommendation: Low dose CT of chest in 6 months. THIS IS AN ELECTRONICALLY VERIFIED FINAL REPORT 12/03/2022 9:31 AM - Electronically signed by Fabricio Baxter M.D. RL: KIRTI Report ID: [id number] Reading Location: [id number] Procedure Note Fabricio Moreau MD - 12/03/2022 EXAM DESCRIPTION: CT LUNG CANCER SCREENING REASON FOR STUDY: Screening CT of the chest in a current smoker with a35 pack year smoking history. Additional history: Chronic obstructivepulmonary disease. Asbestos exposure. TECHNIQUE: Low dose CT scan of the chest was performed without intravenous contrast using helical scanning technique. The exam extends from the lung apices through the lung bases. Automatic exposure control was used as adose optimization technique. NOTE: This study was performed for the specific purposes of lung cancer screening and is not an alternative to diagnostic chest CT. RADIATION DOSE: CT dose index volume (CTDIvol) = 2.25 mGy COMPARISON: Dated 12/01/2021 FINDINGS: SMOKING RELATED LUNG DISEASE: Minimal centrilobular emphysema in theupper lungs. Unchanged subtle centrilobular ground-glass nodules in the upper lungs, suggestive of respiratory bronchiolitis in a smoker. LUNG NODULES: There is a new 5 mm nodule in the left upper lobe on image41. A new 5 mm nodule is seen in the right upper lobe on image 104. A new 7mm ground-glass nodule is seen in the left lower lobe on image 143. No othernew nodules are definitely seen. A 4 mm nodule is unchanged in the peripheryof the right upper lobe on image 57. Other tiny lung nodules are stable. CORONARY ARTERY CALCIFICATION: Severe. OTHER: Minimal areas of peripheral scarring. No focal consolidation.The airways are patent and normal in caliber. No pleural effusion or pneumothorax. No suspicious lymphadenopathy is seen in the chest. No suspicious mediastinal masses. The heart size is normal. No pericardial effusion. The thoracic aorta is mildly atherosclerotic. The ascendingaorta is ectatic, but there is no aneurysm. The pulmonary arteries have normal caliber. Limited low-dose images through the upper abdomen areunremarkable. Examination of bone windows demonstrates no suspicious lytic or blastic lesions. There is diffuse idiopathic skeletal hyperostosis of thethoracic spine. Spinal fusion instrumentation partially seen in the lower cervical spine. IMPRESSION: There are new solid nodules in the left upper lobe and in the right upper lobe, each measuring approximally 5 mm. New 7 mm ground-glass nodule in the left lower lobe. Other tiny lung nodules are stable. Minimal centrilobular emphysema in the upper lungs. Unchanged subtle centrilobular ground-glass nodules in the upper lungs, suggestive of respiratory bronchiolitis in a smoker. Severe coronary artery disease. Lung-RADS category 3: Probably benign. Recommendation: Low dose CT of chest in 6 months. THIS IS AN ELECTRONICALLY VERIFIED FINAL REPORT 12/03/2022 9:31 AM - Electronically signed by Fabricio Baxter M.D. RL: RL Report ID: [id number] Reading Location: [place] [id number] Alison Navarro MD IMG CT PROCEDURES Final Resul t from Last 3 Months or Most Recently Relevant to Health Maintenance Insurance [facility] Care Teams Toe Former Stitchdowns Relationship Specialty Start Date End Date Escobar Hua MD PCP - General Emergency Medicine 02/18/22
--- OUTSIDE RECORDS SUMMARY | 2024-12-31 14:08 | XMS_ITS | Clinical Summary ---
Author Organization [facility] Address [address], [facility] [address] [place] [address] Phone Care Team Providers Care Memorial Designer Name Role Phone Luis Fernando Hinojosa MD Primary Care Provider Unavail able Allergies Active Allergy Reactions Criticality Noted Date Comments Penicillin G Rash 05/05/2015 Medications glipiZIDE (GLUCOTROL XL) 5 MG TABLET SR 24 HR Take 5 mg by mouth daily. Active lisinopril-hydro chlorothiazide (PRINZIDE, ZESTORETIC) 10-12.5 MG Tablet Take 1 Tab by mouth daily. Active metFORMIN (GLUCOPHAGE) 500 MG Tablet Take 500 mg by mouth every evening. Active Family History Medical History Relation Name Comments Cancer Father melanoma Chronic Obstructive Pulmonary Disease Father Stroke Father Congestive Heart Failure Mother Diabetes Mother High Cholesterol Mother Hypertension Mother Migraines Mother Osteoarthritis Mother Stroke Mother Relation Name Status Comments Father Mother Social History Tobacco Use Types Packs/Day Years Used Date Smoking Tobacco: Every Day Cigarettes Comments:smoked 30+ yrs Alcohol Use Standard Drinks/Week Comments No 0 (1 standard drink = 0.6 oz pur e alcohol) occasional Comments Unknown Sex and Gender Information Value Date Recorded Sex Assigned at Not on file Legal Sex Female 7:40 PM CDT Gender Identity Not on file Sexual Orientation Not on file 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 Not on file Not on file Not on file Last Filed Vital Signs Vital Sign Reading Time Taken Comments Blood Pressure 119/85 05/15/2015 12:53 PM PROJECT LEAD Pulse - - Temperature 35 C (95 F) 05/15/2015 12:53 PM PROJECT LEAD Respiratory Rate 15 05/15/2015 12:53 PM PROJECT LEAD Oxygen Saturation 98% 05/15/2015 12:53 PM PROJECT LEAD Inhaled Oxygen Concentration - - Weight 129.7 kg (286 lb) 05/05/2015 1:00 PM PROJECT LEAD Height 170.2 cm (5' 7) 05/05/2015 1:00 PM PROJECT LEAD Body Mass Index 44.79 05/05/2015 1:00 PM PROJECT LEAD Plan of Treatment Health Maintenance Due Date Last Done Comments Hepatitis C Virus (HCV) Screening 1960 TdaP Immunization 1960 Cologuard 2006 Immunochemical Fecal Occult Blood 2006 Pneumococcal Immunization (5 0+ years) (1 of 1 - PCV) 2011 Zoster Immunization (1 of 2) 2011 SARS-COV-2 Immunization (1 - season) 2023 Influenza Immunization (#1) 2024 Colonoscopy 05/15/2025 05/15/2015 Colorectal Cancer Screening 05/15/2025 Respiratory Syncytial Virus (RSV) Immunization (Adult) (1 - 1-dose 75+ series) 2036 Hepatitis B Immunization Aged Out No longer eligible based on patient's age to complete this topic Human Papillomavirus (HPV) Immunization Aged Out No longer eligible b ased on patient's age to complete this topic Meningococcal Immunization (ACWY) Aged Out No longer eligible based on patient's age to complete this topic Rotavirus Immunization Aged Out No lo nger eligible based on patient's age to complete this topic Insurance MEDICAID [facility] Care Teams Memorial Designer Relationship Specialty Start Date End Date Luis Fernando Hinojosa MD PCP - General Hand Surgery 05/11/15
--- OUTSIDE RECORDS SUMMARY | 2024-12-31 14:08 | XMS_ITS | Clinical Summary ---
Author Organization [facility] Address [address] [place] [address] Care Team Providers Care Manager Tax Name Role Phone Unavailable Primary Care Provider Unavailabl e Allergies Active Allergy Reactions Criticality Noted Date Comments Penicillins Rash Low 09/10/2021 Medications potassium aminobenzoate (POTABA) 500 mg Capsule Take 10 g/day by mouth every 6 hours. Active aspirin (ECOTRIN EC) 81 mg Tablet, Delayed Release (E.C.) Take 81 mg by mouth daily. Active lisinopriL (PRINIVIL) 40 mg tablet Take 40 mg by mouth daily. Active glipiZIDE (GLUCOTROL XL) 10 mg Extended Release 24 hour tablet Take 10 mg by mouth daily with breakfast. Active omeprazole (PriLOSEC) 20 mg Capsule, Delayed Release(E.C.) Take 20 mg by mouth daily. Active hydroCHLOROthiazi de (MICROZIDE) 12.5 mg capsule Take 12.5 mg by mouth daily. Active albuterol sulfate 90 mcg/Actuation inhaler Take 2 Puffs by inhalation. 02/04/20 22 Active ergocalciferol (VITAMIN D2) 50,000 unit capsule 04/20/20 22 Active rosuvastatin (CRESTOR) 20 mg tablet rosuvastatin 20 mg tablet TAKE 1 TABLET BY MOUTH EVERY DAY 02/10/20 22 Active Active Problems Problem Noted Date Diagnosed Date Leukocytosis (leucocytosis) 09/10/2021 Family History Medical History Relation Name Comments Cancer Brother 2 Melanoma Father Heart Failure Mother Relation Name Status Comments Brother 1 Alive Brother 2 Alive Brother 3 Alive Daughter 1 Alive Daughter 2 Alive Father Mother Sister 1 Alive Sister 2 Alive Son Alive Social History Tobacco Use Types Packs/Day Years Used Date Smoking Tobacco: Every Day Cigarettes Smokeless Tobacco: Never Alcohol Use Standard Drinks/Week Comments Never 0 (1 standard drink = 0.6 oz pur e alcohol) Comments Unknown Sex and Gender Information Value Date Recorded Sex Assigned at Not on file Legal Sex Female 11:30 AM CDT Gender Identity Not on file Sexual Orientation Not on file Last Filed Vital Signs Vital Sign Reading Time Taken Comments Blood Pressure 126/68 04/30/2022 3:18 PM HAND FOLDER Pulse 93 04/30/2022 3:18 PM HAND FOLDER Temperature 36.7 C (98 F) 04/30/2022 3:18 PM HAND FOLDER Respiratory Rate 18 04/30/2022 3:18 PM HAND FOLDER Oxygen Saturation 93% 04/30/2022 3:18 PM HAND FOLDER Inhaled Oxygen Concentration - - Weight 126.6 kg (279 lb 3.2 oz) 04/30/2022 3:18 PM HAND FOLDER Height 170.2 cm (5' 7) 10/23/2021 2:43 PM CDT Body Mass Index 43.73 10/23/2021 2:43 PM CDT Plan of Treatment Health Maintenance Due Date Last Done Comments DIABETES ANNUAL FOOT EXAM 1979 DIABETES ANNUAL RETINAL EXAM 1979 DIABETES HBA1C Q 6 MONTHS 1979 DIABETES MICROALBUMIN ANNUAL SCREEN 1979 LDL CHOLESTEROL ANNUAL 1979 DTAP/TDAP/TD VACCINES (1 - Tdap) 1980 HPV/Cotest (21-29) 1982 CERVICAL CANCER SCREENING 1991 HPV/Cotest (30-65) 1991 PAP SMEAR 1991 BREAST CANCER SCREENING 2001 COLORECTAL SCREENING 2006 Colorectal Cancer Screening 2006 FIT-DNA Q 3 years 2006 FIT/FOBT Q 1 year 2006 Flex Sig/CT Colonography Q 5 years 2006 ZOSTER VACCINE (1 of 2) 2011 RSV VACCINE (60+ or ) (1 - Risk 60-74 years 1-dose series) 2021 INFLUENZA VACCINE (#1) [address] [place] [address] MEDICAID
== END 2024-12-31 13:44 | disposition home or self-care (01) ==
LOC: ANHCARD 13:47
PROVIDERS: PCP Emergency Medicine; Visit Provider Internal Medicine Cardiovascular Disease
DX: R93.1 Abnormal findings on diagnostic imaging of heart and coronary circulation (principal); R06.09 Other forms of dyspnea
CPT/HCPCS: 93306